=== PATIENT | female | born 1985 | race Native Hawaiian/Other Pacific Islander ===

== ENCOUNTER 2017-01-24 06:13 | Observation (INO) | payer OTHER ==
[2017-01-24 06:33] VITALS: RESP 20
[2017-01-24] MEDS ORDERED: Sodium Chloride 0.9% 1,000 ML ONE ×2 (06:49→10:21)
--- NOTE | 2017-01-24 06:51 | C.PDOC ---
Time Seen by Provider: 01/24/17 06:47 Chief Complaint (Nursing): Headache Past Medical History Vital Signs: Last Vital Signs Temp 98.1 F 01/24/17 06:23 Pulse 85 01/24/17 06:23 Resp 20 01/24/17 06:23 BP 113/79 01/24/17 06:23 Pulse Ox 100 01/24/17 06:23 - Medical History PMH: Migraine Surgical History: Appendectomy - Social History Hx Alcohol Use: No Hx Substance Use: No ED Course And Treatment O2 Sat by Pulse Oximetry: 100 Disposition Counseled Patient/Family Regarding: Studies Performed, Diagnosis - Disposition Disposition Time: 06:51
--- NOTE | 2017-01-24 06:53 | C.PDOC ---
History Of Present Illness 31 year old patient presents to the ED complaining of a severe headache worsening for the past 2 weeks. Patient was seen by her PMD and gave her Naproxen. She has been taking Naproxen without relief. Patient states the pain is severe and aching. Patient notes her symptoms are similar to previous episodes of migraines. She also complains of some nausea and mild photophobia. Patient denies vision change or vomiting. Time Seen by Provider: 01/24/17 06:47 Chief Complaint (Nursing): Headache History Per: Patient History/Exam Limitations: no limitations Onset/Duration Of Symptoms: Other (2 weeks) Current Symptoms Are (Timing): Still Present Severity: Severe Pain Scale Rating Of: 8 Quality: Aching, "Pain" Preceeding Symptoms: Known Migraine Symptoms Associated Symptoms: Photophobia (mild), Nausea (some) Recent travel outside of the [place]: No Past Medical History Reviewed: Historical Data, Nursing Documentation, Vital Signs Vital Signs: Last Vital Signs Temp 98.1 F 01/24/17 06:23 Pulse 85 01/24/17 06:23 Resp 20 01/24/17 06:23 BP 113/79 01/24/17 06:23 Pulse Ox 100 01/24/17 06:54 - Medical History PMH: Migraine Surgical History: Appendectomy Family History: States: Unknown Family Hx - Social History Hx Alcohol Use: No Hx Substance Use: No Review Of Systems Except As Marked, All Systems Reviewed And Found Negative. Eyes: Positive for: Other (photophobia). Negative for: Vision Change ENT: Negative for: Throat Pain Cardiovascular: Negative for: Chest Pain Respiratory: Negative for: Shortness of Breath Gastrointestinal: Positive for: Nausea. Negative for: Vomiting Genitourinary: Negative for: Dysuria Musculoskeletal: Negative for: Back Pain Skin: Negative for: Rash, Lesions, Jaundice, Bruising Neurological: Positive for: Headache. Negative for: Weakness Physical Exam - Physical Exam Appears: In Acute Distress Skin: Warm, Dry Head: Atraumatic, Normacephalic Eye(s): bilateral: Normal Inspection Oral Mucosa: Moist Neck: Supple Chest: Symmetrical Cardiovascular: Rhythm Regular Respiratory: No Rales, No Rhonchi, No Wheezing Gastrointestinal/Abdominal: Soft, No Tenderness Back: No CVA Tenderness Extremity: Normal ROM Extremity: Bilateral: Atraumatic, Normal Color And Temperature Neurological/Psych: Oriented x3, Normal Speech, Normal Cognition, Normal Motor, Normal Sensation Gait: Steady ED Course And Treatment O2 Sat by Pulse Oximetry: 100 (room air) Pulse Ox Interpretation: Normal Disposition Counseled Patient/Family Regarding: Studies Performed, Diagnosis - Disposition Disposition Time: 06:51 Condition: FAIR - Clinical Impression Clinical Impression: Migraine - Scribe Statement The provider has reviewed the documentation as recorded by the Scribe Jacinta Smith Provider Attestation: All medical record entries made by the Scribe were at my direction and personally dictated by me. I have reviewed the chart and agree that the record accurately reflects my personal performance of the history, physical exam, medical decision making, and the department course for this patient. I have also personally directed, reviewed, and agree with the discharge instructions and disposition. Physician Patient Turnover Patient Signed Over To: Rachel Roman Handoff Comments: pending re-eval and disposition
[2017-01-24] MEDS ORDERED: MethylPREDNISolone 40 mg Vial IVP STA (07:00)
[2017-01-24] MEDS ORDERED: Sodium Chloride 0.9% 1,000 ML IV ONE ×2 (07:00→10:01)
--- NOTE | 2017-01-24 08:39 | CT ---
PROCEDURE: CT HEAD WITHOUT CONTRAST. HISTORY: severe headache COMPARISON: None available. TECHNIQUE: Axial computed tomography images were obtained through the head/brain without intravenous contrast. Radiation dose: Total exam DLP = 762 mGy-cm. This CT exam was performed using one or more of the following dose reduction techniques: Automated exposure control, adjustment of the mA and/or kV according to patient size, and/or use of iterative reconstruction technique. FINDINGS: HEMORRHAGE: No intracranial hemorrhage. BRAIN: No mass effect or edema. No atrophy or chronic microvascular ischemic changes. Small focal hypodensity seen within the right temporal lobe on series 2, image 9 measuring 5 millimeters is not as well appreciated on the thin cut sequences series 4 image images 15 through 17, possibly representing volume averaging with the adjacent gyrus. VENTRICLES: Unremarkable. No hydrocephalus. CALVARIUM: Unremarkable. PARANASAL SINUSES: Unremarkable as visualized. No significant inflammatory changes. MASTOID AIR CELLS: Unremarkable as visualized. No inflammatory changes. OTHER FINDINGS: None. IMPRESSION: No acute intracranial abnormality. Small focal hypodensity seen within the right temporal lobe on series 2, image 9 measuring 5 millimeters is not as well appreciated on the thin cut sequences series 4 image images 15 through 17, possibly representing volume averaging with the adjacent gyrus. If focal neurologic deficit persists, consider MRI
[2017-01-24] MEDS ORDERED: Apap-Butalbital-Caffeine 325-50-40mg Tab PO STA (10:01)
[2017-01-24] MEDS ORDERED: Apap-Butalbital-Caffeine 325-50-40mg Tab ONE (10:21)
--- NOTE | 2017-01-24 12:54 | MRI ---
PROCEDURE: MRI BRAIN WITHOUT CONTRAST HISTORY: ABNORMAL CT HEAD, PERSISTENT HEADACHE COMPARISON: Comparison made with CT scan brain obtained earlier same day TECHNIQUE: Multiplanar, multisequence MR images of the brain were obtained without intravenous contrast enhancement. FINDINGS: HEMORRHAGE: No acute parenchymal, subarachnoid nor extra-axial hemorrhage. No intracranial hemosiderin deposition seen on gradient echo weighted sequence. DWI: No evidence of an acute or early subacute infarction. BRAIN PARENCHYMA: No obvious parenchymal nor extra-axial mass or collection seen on this noncontrast study. .There are a few tiny focal areas of increased T2 signal scattered about right periatrial and right posterior superior basal ganglia regions nonspecific. Rule out sequela of small vessel disease, migraine headaches, posttraumatic or post infectious/ inflammatory etiologies. Atypical presentation of a demyelinating disease process would be less likely in the absence of a pertinent clinical history however not completely excluded. VENTRICLES: Ventricular and sulcal size are within range of normal for this patient's stated age. CRANIUM: Calvarium appears grossly unremarkable ORBITS: Orbits and contents also unremarkable. TheGrossly unremarkable. PARANASAL SINUSES/MASTOIDS: Paranasal sinuses are well-developed. No evidence of acute paranasal sinusitis. Mastoid air complexes are well-developed and clear. VASCULAR SYSTEM: Visualized major vascular flow voids at skull base are patent. OTHER FINDINGS: None. IMPRESSION: No acute intracranial hemorrhage or infarct. Minor chronic appearing white matter changes nonspecific. Rule out sequela of small vessel disease or migraine headaches. See above discussion for additional differential diagnostic considerations.
[2017-01-24 12:55] VITALS: BP 118/79; PULSE 88; TEMP 98.6; O2SAT 98
== END 2017-01-24 13:10 | disposition home or self-care (01) ==
LOC: C.ER 06:13 → C.9OBSV 09:00
PROVIDERS: ADMIT Emergency Medicine; ATTEND Emergency Medicine
DX: G43.909 Migraine, unspecified, not intractable, without status migrainosus (principal)
CPT/HCPCS: 70450; 70551; 96360; 96374; G0378; J1885; J2270; J2765; J2920; J7040